=== PATIENT | female | born 1985 | race African-American/Black ===

== ENCOUNTER 2017-03-29 06:10 | Emergency (ER) | payer MEDICAID ==
[~2017-03-29] VITALS: Ht 154.9 cm; Wt 77.1 kg
[2017-03-29 06:19] VITALS: BP 143/87
[2017-03-29] MEDS ORDERED: methylPREDNISolone SOD SUCC 125 MG/2 ML VL IM ONE (07:45)
[2017-03-29] MEDS ORDERED: cefTRIAXone SOD 1,000 MG VL IM ONE (07:45)
[2017-03-29] MEDS ORDERED: LIDOCAINE VISCOUS 2% 15ML UD PO ONE (08:00)
== END 2017-03-29 08:17 | disposition home or self-care (01) ==
LOC: ER 06:12
DX: J03.90 Acute tonsillitis, unspecified (principal)
CPT/HCPCS: 96372; 99284; J0696; J2930

== ENCOUNTER 2018-07-20 07:05 | Emergency (ER) | payer MEDICAID ==
[~2018-07-20] VITALS: Ht 157.5 cm; Wt 81.6 kg
[2018-07-20 07:27] VITALS: BP 131/82
== END 2018-07-20 09:00 | disposition home or self-care (01) ==
LOC: ER 07:05
DX: K14.9 Disease of tongue, unspecified (principal)